=== PATIENT | female | born 1975 | race Caucasian/White ===

== ENCOUNTER 2017-02-15 11:35 | Emergency (ER) | payer OTHER ==
[2017-02-15 11:48] VITALS: BP 133/78
== END 2017-02-15 15:46 | disposition home or self-care (01) ==
LOC: ED 11:35
DX: J06.9 Acute upper respiratory infection, unspecified (principal); J02.9 Acute pharyngitis, unspecified; I10 Essential (primary) hypertension; E11.9 Type 2 diabetes mellitus without complications
CPT/HCPCS: Q0092

== ENCOUNTER 2018-12-25 06:03 | Inpatient (IN) | payer OTHER ==
[~2018-12-25] VITALS: Ht 154.9 cm; Wt 80.4 kg
[2018-12-25 06:09] VITALS: Ht 154.9 cm; Wt 80.4 kg
[2018-12-25] MEDS ORDERED: LIPI20 (07:01)
[2018-12-25] MEDS ORDERED: METFORMIN HYD1000 M2 (07:01)
[2018-12-25] MEDS ORDERED: BENAZEPRIL HCL/1 TAB (07:01)
[2018-12-25] MEDS ORDERED: ASPIR 8181 MG (07:02)
[2018-12-25 07:15] LABS: BASOPHIL % 0.3 % (0-2); PLATELET COUNT 395 x10^3mcL (130-400); RED CELL DISTRIBUTION WIDTH 13.2 % (11.5-14.5)
[2018-12-25 07:44] LABS: CK-MB < 0.5 ng/mL (0-3.6); CREATINE KINASE 27 U/L (26-192); T3 TOTAL 0.78 ng/mL
[2018-12-25 07:58] LABS: FREE T4 0.92 ng/dL (0.76-1.46); FREE THYROXINE INDEX 2.1 ug/dL (1.4-4.5); T4(THYROXINE) 6.6 ug/dL (4.7-13.3)
[2018-12-25 08:11] LABS: ALBUMIN 3.4 g/dL (3.4-5.0); ALKALINE PHOSPHATASE 115 U/L (46-116); ALT/SGPT 21 U/L (14-59); AST/SGOT 5 U/L (15-37); BILIRUBIN TOTAL 1.02 mg/dL (0.20-1.00); CALCIUM 9.5 mg/dL (8.5-10.1); CARBON DIOXIDE 24.5 mmol/L (21-32); CHLORIDE SERUM 95 mmol/L (98-107); CREATININE SERUM 0.8 mg/dL (0.6-1.0); GFR1 > 60 mL/min; GLUCOSE SERUM 205 mg/dL (74-106); POTASSIUM SERUM 3.2 mmol/L (3.5-5.1); SODIUM SERUM 135 mmol/L (136-145)
[2018-12-25 08:13] LABS: C REACTIVE PROTEIN 21.9 mg/dL (<=0.9); TOTAL PROTEIN, SERUM 8.6 g/dL (6.4-8.2)
[2018-12-25 09:22] VITALS: BP 128/74
[2018-12-25 09:27] LABS: ERYTHROCYTE SED RATE 96 mm/hr (0-20)
[2018-12-25 17:35] VITALS: BP 139/78
[2018-12-25 18:10] LABS: microscopic required? NO
[2018-12-25 18:41] LABS: UA SPECIFIC GRAVITY <=1.005 (1.005-1.035); urine erythrocyte NEGATIVE (NEGATIVE)
[2018-12-25 20:25] VITALS: BP 130/69
[2018-12-26 05:19] VITALS: BP 114/75
[2018-12-26 06:32] LABS: CALCIUM 8.8 mg/dL (8.5-10.1); CARBON DIOXIDE 27.3 mmol/L (21-32); CHLORIDE SERUM 104 mmol/L (98-107); CREATININE SERUM 0.6 mg/dL (0.6-1.0); GFR1 > 60 mL/min; GLUCOSE SERUM 142 mg/dL (74-106); POTASSIUM SERUM 3.7 mmol/L (3.5-5.1); SODIUM SERUM 140 mmol/L (136-145)
[2018-12-26 06:38] LABS: BASOPHIL % 0.4 % (0-2); PLATELET COUNT 346 x10^3mcL (130-400); RED CELL DISTRIBUTION WIDTH 13.1 % (11.5-14.5)
[2018-12-26 09:11] VITALS: BP 143/83
[2018-12-26 17:12] VITALS: BP 108/68
[2018-12-26 19:30] VITALS: BP 140/68
[2018-12-27 04:50] VITALS: BP 134/76
[2018-12-27 06:51] LABS: CALCIUM 8.2 mg/dL (8.5-10.1); CARBON DIOXIDE 25.6 mmol/L (21-32); CHLORIDE SERUM 105 mmol/L (98-107); CREATININE SERUM 0.6 mg/dL (0.6-1.0); GFR1 > 60 mL/min; GLUCOSE SERUM 153 mg/dL (74-106); POTASSIUM SERUM 3.9 mmol/L (3.5-5.1); SODIUM SERUM 140 mmol/L (136-145)
[2018-12-27 07:35] LABS: BASOPHIL % 0.6 % (0-2); PLATELET COUNT 350 x10^3mcL (130-400); RED CELL DISTRIBUTION WIDTH 12.9 % (11.5-14.5)
[2018-12-27 08:48] VITALS: BP 153/87
[2018-12-27 16:50] VITALS: BP 151/87
[2018-12-27 20:44] VITALS: BP 157/78
[2018-12-28 05:45] VITALS: BP 147/78
[2018-12-28 06:13] LABS: BASOPHIL % 0.6 % (0-2); PLATELET COUNT 377 x10^3mcL (130-400)
[2018-12-28 06:39] LABS: CALCIUM 8.6 mg/dL (8.5-10.1); CARBON DIOXIDE 26.7 mmol/L (21-32); CHLORIDE SERUM 106 mmol/L (98-107); CREATININE SERUM 0.5 mg/dL (0.6-1.0); GFR1 > 60 mL/min; GLUCOSE SERUM 153 mg/dL (74-106); POTASSIUM SERUM 4.3 mmol/L (3.5-5.1); SODIUM SERUM 142 mmol/L (136-145)
[2018-12-28 08:06] VITALS: BP 155/93
[2018-12-28 16:25] VITALS: BP 124/86
[2018-12-28 20:43] VITALS: BP 155/71
[2018-12-29 05:55] VITALS: BP 144/68
[2018-12-29 06:27] LABS: BASOPHIL % 0.6 % (0-2); PLATELET COUNT 396 x10^3mcL (130-400); RED CELL DISTRIBUTION WIDTH 12.8 % (11.5-14.5)
[2018-12-29 06:50] LABS: CALCIUM 8.8 mg/dL (8.5-10.1); CARBON DIOXIDE 24.6 mmol/L (21-32); CHLORIDE SERUM 105 mmol/L (98-107); CREATININE SERUM 0.6 mg/dL (0.6-1.0); GFR1 > 60 mL/min; GLUCOSE SERUM 161 mg/dL (74-106); POTASSIUM SERUM 4.3 mmol/L (3.5-5.1); SODIUM SERUM 139 mmol/L (136-145)
[2018-12-29 08:34] VITALS: BP 159/82
[2018-12-29] MEDS ORDERED: CLEOCIN HCL300 MG PO (09:08)
== END 2018-12-29 16:36 | disposition home or self-care (01) | DRG 383 ==
LOC: ED 06:03 → MU 06:35
PROVIDERS: General Practice; Specialist; ADMIT Internal Medicine
PROC: 0Y9M0ZZ Drainage of Right Foot, Open Approach (ICD-10-PCS; principal; 2018-12-26)
DX: L02.611 Cutaneous abscess of right foot (principal); R65.10 Systemic inflammatory response syndrome (SIRS) of non-infectious origin without acute organ dysfunction; L03.031 Cellulitis of right toe; I10 Essential (primary) hypertension; E11.9 Type 2 diabetes mellitus without complications; B95.61 Methicillin susceptible Staphylococcus aureus infection as the cause of diseases classified elsewhere; B95.4 Other streptococcus as the cause of diseases classified elsewhere; L60.0 Ingrowing nail; Z68.36 Body mass index [BMI] 36.0-36.9, adult; Z79.84 Long term (current) use of oral hypoglycemic drugs
CPT/HCPCS: 82962; 84439; 97116-GP; G0378; J0696; J2001; J2270; J2540; J2543; J3370; J3490; J7030; Q0092